=== PATIENT | female | born 1955 | race Caucasian/White ===

== ENCOUNTER 2017-10-10 07:24 | Day surgery (SDC) | payer BC ==
[2017-09-29 10:45] VITALS: BMI 18.6
[2017-10-10] MEDS ORDERED: Propofol 10 mg/ml Inj (20 ML) ONE (08:45)
[2017-10-10] MEDS ORDERED: Sodium Chloride 0.9% 1,000 ML IV SCH (09:00)
[2017-10-10 11:15] VITALS: TEMP 97.9
[2017-10-10 11:45] VITALS: BP 117/57; PULSE 58; RESP 17; O2SAT 100
== END 2017-10-10 13:05 | disposition home or self-care (01) ==
LOC: ENDO 07:24
PROVIDERS: ATTEND Internal Medicine Gastroenterology
DX: Z12.11 Encounter for screening for malignant neoplasm of colon (principal); K57.30 Diverticulosis of large intestine without perforation or abscess without bleeding; K64.8 Other hemorrhoids; K64.4 Residual hemorrhoidal skin tags; K31.7 Polyp of stomach and duodenum; K29.31 Chronic superficial gastritis with bleeding; Z98.0 Intestinal bypass and anastomosis status
CPT/HCPCS: 43239; 45378; 88305; 88342; J2001; J2704; J7030; J7040